=== PATIENT | male | born 1985 | race American Indian/Alaskan Native ===

== ENCOUNTER 2017-07-26 08:17 | Day surgery (SDC) | payer OTHER ==
[~2017-07-26 08:17] MED LIST: ADRENALIN IV ONE; NACL 0.9% IR ONE
[2017-07-26] MEDS ORDERED: NACL BACTERIOSTATIC INFILTRATI ONE (10:27)
[2017-07-26] MEDS ORDERED: ANCEF/STERILE WATER 2 GM/20 ML IV NR (11:00)
--- NOTE | 2017-07-26 11:13 | Anesthesia Day of Surgery ---
Anesthesia Day of Surgery - Day of Surgery Patient Examined: Yes Patient H&P Reviewed: Yes Patient is NPO: Yes
--- NOTE | 2017-07-26 11:13 | Anesthesia Consultation ---
Anesthesia Consult and Med Hx Date of service: 07/26/17 - Airway Anesthetic Teeth Evaluation: Good ROM Head & Neck: Adequate Mental/Hyoid Distance: Adequate Mallampati Class: Class II Intubation Access Assessment: Probably Good - Pulmonary Exam CTA: Yes - Cardiac Exam Cardiac Exam: RRR - Pre-Operative Health Status ASA Pre-Surgery Classification: ASA1 Proposed Anesthetic Plan: General - Pre-Anesthesia Comment Pre-Anesthesia Comments: first anesthetic, no family history of complications
[2017-07-26] MEDS ORDERED: DIPRIVAN 10 MG/ML IV ONE ×2 (11:54→13:18)
[2017-07-26] MEDS ORDERED: SUBLIMAZE ONE (11:55)
[2017-07-26] MEDS ORDERED: XYLOCAINE MPF 2% ONE (11:56)
[2017-07-26] MEDS ORDERED: ZOFRAN ONE (11:56)
[2017-07-26] MEDS ORDERED: NACL 0.9% 1000 ML 1,000 ML IV SCH (12:00)
[2017-07-26] MEDS ORDERED: NEO SYNEPHRINE/NS Syringe(OR USE) IV ONE (12:00)
[2017-07-26] MEDS ORDERED: NACL 0.9% IR ONE (12:30)
[2017-07-26] MEDS ORDERED: ADRENALIN ONE (12:32)
[2017-07-26] MEDS ORDERED: MARCAINE 0.25% INFILTRATI ONE ×2 (12:33→12:56)
[2017-07-26] MEDS ORDERED: XYLOCAINE 1% 20 mL INFILTRATI ONE (12:33)
[2017-07-26] MEDS ORDERED: ADRENALIN IV ONE (12:33)
[2017-07-26] MEDS ORDERED: XYLOCAINE 1% 20 mL ONE (12:56)
--- NOTE | 2017-07-26 13:57 | Short Stay Summary ---
Short Stay Documentation Date of service: 07/26/17 - History H&P: obtained from office - Allergies and Medications Current Medications: Allergies Iodinated Contrast- Oral and IV Dye Allergy (Verified 07/15/17 10:26) Swelling shellfish derived Allergy (Verified 07/15/17 10:26) Shortness of Breath Home Medications Medication Instructions Recorded Confirmed Last Taken Type No Known Home Medications [No 07/15/17 07/15/17 Unknown History Reported Home Medications] Active Medications Cefazolin Sodium (Ancef/Sterile Water 2 Gm/20 Ml) 2 gm IV PREOP NR Stop: 07/26/17 23:59 Sodium Chloride (Nacl 0.9% 1000 Ml) 1,000 mls @ 100 mls/hr IV DIRECT OSWALD Last Admin: 07/26/17 11:50 Dose: 100 mls/hr - Brief post op/procedure progress note Date of procedure: 07/26/17 Pre-op diagnosis: persistent right knee pain, possible medial meniscus tear, Post-op diagnosis: other (persistent right knee pain, large pathologic medial plica, chondral lesions of medial and patellofemoral compartments) Procedure: right knee arthroscopy, excision of medial plica, abrasion chondroplasty medial and patellofemoral compartments Anesthesia: GETA Findings: 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
--- NOTE | 2017-07-26 14:09 | Post Anesthesia Evaluation ---
- Post Anesthesia Evaluation Patient Participated: Yes Airway Patent: Yes Stable Respiratory Function: Yes Nausea/Vomiting: No Temp > 96.8F: Yes Pain Manageable: Yes Adequeate Hydration: Yes Anesthesia Complications: No Block Receding Appropriately: Not Applicable Patient on Ventilator: No
[2017-07-26] MEDS ORDERED: ZOFRAN IV PRN (14:10)
[2017-07-26] MEDS: DILAUDID IV PRN ×2 (14:20→14:39)
[2017-07-26] MEDS ORDERED: PERCOCET 5/325 PO PRN (14:30)
[2017-07-26 19:49] VITALS: BP 124/80
--- NOTE | 2017-07-26 21:58 | Operative Report ---
PREOPERATIVE DIAGNOSES: Persistent right knee pain, possible medial meniscus tear, patellofemoral maltracking. POSTOPERATIVE DIAGNOSES: Persistent right knee pain, large pathologic medial plica causing significant impingement upon the medial femoral condyle nonweightbearing portion, grade 3/4 articular cartilage loss central aspect of the trochlea as well as an area of the medial femoral condyle measuring approximately 1 cm in circumference. PROCEDURE: Right knee arthroscopy, excision of medial plica, abrasion chondroplasty of the medial and patellofemoral compartments. SURGEON: Matt Cee MD RAG GRADER: None. ANESTHESIA: General. PREOPERATIVE ANTIBIOTICS: Ancef 2 grams IV within 1 hour of skin incision, DVT prophylaxis open toe, thigh high compression stockings and SCD pumps to the nonoperative left lower extremity. OPERATIVE COMPLICATIONS: None. INDICATIONS: This is a 32-year-old male, who has had persistent progressively worsening right knee pain with mechanical symptoms that has failed to improve, status post an injury on 08/08/2016. The pain has failed to improve despite extensive nonoperative treatment and is markedly limiting his day-to-day activities. MRI scan was performed, which was positive for a possible medial meniscus tear and evidence of patellofemoral maltracking with marked inflammation within the Hoffa's fat pad. The patient's MRI findings and diagnosis were discussed at length to make sure the patient understood that diagnosis. All questions were answered. We discussed treatment alternatives of surgical and nonsurgical including risks and benefits of both. After a long, lengthy discussion, the patient opted to proceed with operative intervention. This will entail a right knee arthroscopy, possible partial medial meniscectomy, possible lateral release and surgery as indicated. The risks of which were discussed to include but not exclusive of infection, blood loss, nerve damage, loss of range of motion, persistent pain. Again, the patient understood all questioning, he wished to proceed with operative intervention. DESCRIPTION OF PROCEDURE: The patient was seen in the preoperative holding area at which point informed consent was reviewed and appropriate right lower extremity was identified and then marked. The patient was then brought back to the operating room and placed supine on the standard operating room table, at which point, general anesthesia was administered. An LMA tube was inserted. After confirmation of adequate general anesthesia, checking appropriate placement of the LMA tube, we then made sure that all bony prominences were well padded. There were no wrinkles in the compression stockings in the left lower extremity and SCD pumps were applied to the left lower extremity. The hip was secured in neutral position. The arms were also secured in neutral position on the patient's side with the aid of the arm boards. The right lower extremity was then examined under anesthesia. The patient was seen to have full range of motion 0-130 degrees of flexion. There was no evidence of instability with a negative Jerry, negative anterior drawer, negative posterior drawer. No varus or valgus instability at 0 as well as 30 degrees of flexion, no recurvatum or excessive external rotation with normal patellofemoral tracking. The right lower extremity was then prepped and draped in the usual sterile fashion. After prepping and draping, a timeout was called. The appropriate right lower extremity was identified, which again had been marked in the preoperative holding area. We began our procedure by first infiltrating the knee with 30 mL of 0.25% Marcaine with epinephrine and 30 mL of 2% lidocaine without epinephrine, which the patient tolerated well. There were no complications. Following this, I began the procedure by first making a standard anterolateral portal with a #15 blade. Once the portals were established, a cannula with a blunt trocar was inserted into the intraarticular aspect of the knee joint. This went without difficulty or damage to the articular cartilage. Once in place, the arthroscopic camera was immediately placed in the medial compartment establishing anteromedial portal by first inserting 18 gauge spinal needle under direct arthroscopic visualization. Once confirmed to be superior to medial meniscus, a 15 blade was then used to establish anteromedial portal. Once the portal was established, blunt trocar was inserted to widen the portal site for an arthroscopic probe. We began diagnostic arthroscopy in the medial compartment where the patient seemed to have grade 3/4 articular cartilage loss of nearly measuring approximately 1 cm in circumference in the weightbearing portion of the medial femoral condyle. There was grade 1 articular cartilage loss of the medial tibial plateau. Inspection of the anterior and posterior horn of the medial meniscus showed these to be intact and stable when probed. Inspection of the notch showed the ACL and PCL to be intact and stable when probed. There was marked pathologic thickening of Hoffa's fat pad. Inspection of the lateral compartment was carried out by placing the knee in the [id number] position. Once in that position, we saw there were no root tears of the menisci. No tears in the anterior or posterior horn of the lateral meniscus. The popliteus was seen to be intact and stable when probed. There was normal articular cartilage, the lateral femoral condyle and lateral tibial plateau. Inspection of the patellofemoral joint showed to be grade 3/4 articular cartilage loss in the central aspect of the trochlea with markedly loose and pathologic loose fibrinous cartilaginous edges. Inspection of suprapatellar pouch showed to be no loose bodies present. There was a large pathologic and thickened medial plica that was causing significant impingement upon the nonweightbearing portion of the medial femoral condyle. This medial plica was excised and hemostasis was achieved with Arthrocare ablation wand. Once this was confirmed and completed, the knee was then placed through full range of motion. Again, we saw there was no further impingement of the medial plica upon the medial femoral condyle. We used a standard mechanical abrasion chondroplasty technique on the loose fibrinous cartilage edges of the trochlea as well as the medial femoral condyle. Once completed, the arthroscopic pump was turned off to make sure there was good hemostasis. Once this was confirmed, the extraneous fluid was suctioned from the knee using arthroscopic cannula. Following this, all the arthroscopic instrumentation was removed. The 2 portal sites were closed with 3-0 nylon in simple fashion. Adaptic, 4 x 4s, ABD, sterile cast padding, Sukh wrap followed by Donjoy Cryo/Cuff blanket was applied followed by open toe with thigh high compression stocking. The patient was then awakened from general anesthesia without complications, taken to the recovery room in stable condition. Standard postoperative orders were written. JOB# [id number] VS/ALBERTO
== END 2017-07-26 17:36 | disposition home or self-care (01) ==
LOC: OR 08:17
PROVIDERS: ATTEND Orthopaedic Surgery
DX: M67.51 Plica syndrome, right knee (principal); M25.861 Other specified joint disorders, right knee; I10 Essential (primary) hypertension; Z91.013 Allergy to seafood; Z91.048 Other nonmedicinal substance allergy status
CPT/HCPCS: 29877; 97161; A4217; J0171; J0690; J1170; J2370; J2405; J2704; J3010; J7030